=== PATIENT | male | born 1985 | race Caucasian/White ===

== ENCOUNTER 2017-08-01 23:28 | Emergency (ER) | payer OTHER, SELFPAY ==
[2017-08-02] MEDS ORDERED: predniSONE 20 MG TAB ONE (00:22)
[2017-08-02] MEDS ORDERED: KETOROLAC 30 MG/ML INJ ONE (00:22)
--- NOTE | 2017-08-02 01:11 | EDPHYS ---
Physician Documentation [facility] Name: Champ Kingsley Age: 31 yrs Sex: Male : 1985 Arrival Date: 08/01/2017 Time: 23:48 Bed 14 Private MD: ED Physician Marty Watkins HPI: 08/02 00:59 This 31 yrs old Male presents to ER via Ambulatory with complaints of Back gs Pain. 00:59 The patient presents with pain that is acute. The symptoms are located in the low back. gs Onset: The symptoms/episode began/occurred 2 day(s) ago. The pain does not radiate. Associated signs and symptoms: Pertinent negatives: incontinence, urinary retention. The problem was sustained when bending over, when lifting at work. Modifying factors: The patient symptoms are alleviated by rest, the patient symptoms are aggravated by movement. The patient has experienced similar episodes in the past, a few times. Historical: - Allergies: 08/01 23:51 No Known Allergies; fc - Home Meds: 23:51 None [Active]; fc - PMHx: 23:51 None; fc - PSHx: 23:51 None; fc - Immunization history:: Last tetanus immunization: up to date. - Social history:: Smoking status: Patient uses tobacco products, smokes one pack cigarettes per day. Patient uses alcohol, only on a social basis. Patient/guardian denies using street drugs. ROS: 08/02 00:59 All other systems are negative. gs Exam: 00:59 Head/Face: Normocephalic, atraumatic. Eyes: Pupils equal round and reactive to light, gs extra-ocular motions intact. Lids and lashes normal. Conjunctiva and sclera are non-icteric and not injected. Cornea within normal limits. Periorbital areas with no swelling, redness, or edema. ENT: Nares patent. No nasal discharge, no septal abnormalities noted. Tympanic membranes are normal and external auditory canals are clear. Oropharynx with no redness, swelling, or masses, exudates, or evidence of obstruction, uvula midline. Mucous membranes moist. Neck: Trachea midline, no thyromegaly or masses palpated, and no cervical lymphadenopathy. Supple, full range of motion without nuchal rigidity, or vertebral point tenderness. No Meningismus. Chest/axilla: Normal chest wall appearance and motion. Nontender with no deformity. No lesions are appreciated. Cardiovascular: Regular rate and rhythm with a normal S1 and S2. No gallops, murmurs, or rubs. Normal PMI, no JVD. No pulse deficits. Respiratory: Lungs have equal breath sounds bilaterally, clear to auscultation and percussion. No rales, rhonchi or wheezes noted. No increased work of breathing, no retractions or nasal flaring. Abdomen/GI: Soft, non-tender, with normal bowel sounds. No distension or tympany. No guarding or rebound. No evidence of tenderness throughout. Skin: Warm, dry with normal turgor. Normal color with no rashes, no lesions, and no evidence of cellulitis. MS/ Extremity: Pulses equal, no cyanosis. Neurovascular intact. Full, normal range of motion. Neuro: Awake and alert, GCS 15, oriented to person, place, time, and situation. Cranial nerves II-XII grossly intact. Motor strength 5/5 in all extremities. Sensory grossly intact. Cerebellar exam normal. Normal gait. 00:59 Constitutional: The patient appears alert, awake. 00:59 Back: pain, that is moderate, of the left low back and right low back, normal spinal alignment noted. Vital Signs: 08/01 23:51 BP 133 / 88; Pulse 78; Resp 18; Temp 98.2(O); Pulse Ox 96% on R/A; Weight 79.83 kg (R); fc Height 5 ft. 6 in. (167.64 cm) (R); Pain 9/10; 08/02 00:09 BP 137 / 96; Pulse 83; Resp 18; Temp 97.9; Pulse Ox 96% on R/A; wh 00:56 BP 129 / 89; Pulse 72; Resp 17; Pulse Ox 96% on R/A; wh 08/01 23:51 Body Mass Index 28.41 (79.83 kg, 167.64 cm) MDM: 00:01 Patient medically screened. 00:59 Differential diagnosis: arthritis, Ligament Injury ruptured disc. Data reviewed: vital gs signs, nurses notes. Response to treatment: the patient's symptoms have markedly improved after treatment, and as a result, I will discharge patient. Administered Medications: 00:27 Drug: predniSONE 20 mg Route: PO; 01:17 Follow up: Response: No adverse reaction 00:27 Drug: TORadol 30 mg Route: IM; Site: right deltoid; 01:17 Follow up: Response: No adverse reaction Disposition: 08/02/17 01:10 Discharged to Home. Impression: Low back pain. - Condition is Stable. - Discharge Instructions: Back Pain, Adult. - Prescriptions for Naprosyn 500 mg Oral Tablet - take 1 tablet by ORAL route 2 times per day take with food; 20 tablet. Pepcid 20 mg Oral Tablet - take 1 tablet by ORAL route every 12 hours for 10 days; 20 tablet. Prednisone 20 mg Oral Tablet - take 1 tablet by ORAL route once daily for 5 days; 5 tablet. - Medication Reconciliation Form, Thank You Letter, Antibiotic Education, Prescription Opioid Use form. - Follow up: Private Physician; When: 1 - 2 days; Reason: Re-evaluation by your physician. Signatures: Nia Fairbanks RN RN fc [place], Winsy Marty Watkins MD MD
--- NOTE | 2017-08-02 01:11 | ER ---
Nurse's Notes [facility] Name: Champ Kingsley Age: 31 yrs Sex: Male : 1985 Arrival Date: 08/01/2017 Time: 23:48 Bed 14 Private MD: Diagnosis: Low back pain Presentation: 08/01 23:48 Presenting complaint: Patient states: that he was at work and lifted a heavy piece of metal pulling something in his back. Was seen at [facility] on Monday and was given heating pad and brace. Was told to come back on . Transition of care: patient was not received from another setting of care. Onset of symptoms was July 31, 2017. Care prior to arrival: Medication(s) given: Motrin, 800 mg, last at 1999. 23:48 Method Of Arrival: Ambulatory fc 23:48 Acuity: WINNIE 4 fc Historical: - Allergies: 23:51 No Known Allergies; fc - Home Meds: 23:51 None [Active]; fc - PMHx: 23:51 None; fc - PSHx: 23:51 None; fc - Immunization history:: Last tetanus immunization: up to date. - Social history:: Smoking status: Patient uses tobacco products, smokes one pack cigarettes per day. Patient uses alcohol, only on a social basis. Patient/guardian denies using street drugs. Screenin/11 00:09 Abuse screen: Denies threats or abuse. Denies injuries from another. Nutritional wh screening: No deficits noted. Tuberculosis screening: No symptoms or risk factors identified. Fall Risk None identified. Assessment: 00:07 General: Appears in no apparent distress. uncomfortable, Behavior is calm, cooperative, wh appropriate for age. Pain: Complains of pain in lower back pain Pain does not radiate. Pain currently is 9 out of 10 on a pain scale. Quality of pain is described as aching, Pain began 1 day ago. 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 Cardiovascular: Denies chest pain, Capillary refill < 3 seconds. Respiratory: Airway is patent Respiratory effort is even, unlabored, Respiratory pattern is regular, symmetrical. GI: Abdomen is flat, non-distended. : No signs and/or symptoms were reported regarding the genitourinary system. EENT: No signs and/or symptoms were reported regarding the EENT system. Derm: Skin is intact, is healthy with good turgor, Skin is pink, warm \T\ dry. normal. Musculoskeletal: Range of motion: intact in all extremities. 00:56 Reassessment: Patient appears in no apparent distress at this time. Patient and/or family updated on plan of care and expected duration. Pain level reassessed. Patient is alert, oriented x 3, equal unlabored respirations, skin warm/dry/pink. Vital Signs: 08/01 23:51 BP 133 / 88; Pulse 78; Resp 18; Temp 98.2(O); Pulse Ox 96% on R/A; Weight 79.83 kg (R); Height 5 ft. 6 in. (167.64 cm) (R); Pain 01/01; 08/02 00:09 BP 137 / 96; Pulse 83; Resp 18; Temp 97.9; Pulse Ox 96% on R/A; wh 00:56 BP 129 / 89; Pulse 72; Resp 17; Pulse Ox 96% on R/A; wh 08/01 23:51 Body Mass Index 28.41 (79.83 kg, 167.64 cm) ED Course: 08/01 23:48 Patient arrived in ED. 23:51 Triage completed. 23:51 Arm band placed on Patient placed in an exam room, on a stretcher. 23:56 Luis Connors is Primary Nurse. 08/02 00:01 Marty Watkins MD is Attending Physician. 00:09 Patient has correct armband on for positive identification. Bed in low position. Call light in reach. Side rails up X 1. Pulse ox on. NIBP on. 01:16 No provider procedures requiring assistance completed. Patient did not have IV access during this emergency room visit. Administered Medications: 00:27 Drug: predniSONE 20 mg Route: PO; 01:17 Follow up: Response: No adverse reaction 00:27 Drug: TORadol 30 mg Route: IM; Site: right deltoid; 01:17 Follow up: Response: No adverse reaction Outcome: 01:10 Discharge ordered by . 01:16 Discharged to home ambulatory, with family. 01:16 Condition: improved 01:16 Discharge instructions given to patient, family, Instructed on discharge instructions, follow up and referral plans. medication usage, POC Back Pain Demonstrated understanding of instructions, follow-up care, medications, Prescriptions given X 3. 01:17 Patient left the ED. Signatures: Nia Fairbanks, RN Luis Saenz Marty Watkins MD MD
== END 2017-08-02 01:17 | disposition home or self-care (01) ==
LOC: ER 23:28
DX: M54.5 Low back pain (principal); F17.210 Nicotine dependence, cigarettes, uncomplicated
CPT/HCPCS: 96372; 99283; J7512

== ENCOUNTER 2023-01-24 15:23 | Emergency (ER) | payer SELFPAY ==
--- OUTSIDE RECORDS SUMMARY | 2023-01-24 15:36 | XMS REPORT | Continuity of Care Document ---
:1985 Author Organization [facility] Address [address] [place] [address] Care Team Providers Name Role Phone JAMES Attending Clinician Unavailable Leah Kaba Attending Clinician [phone] JAMES Admitting Clinician Unavailable Payers Payer Name Policy Type Policy Number Effective Date Expiration Date S ource Problems Condition Condition Condition Status Onset Resolution Last Treating Co mments Source Name Details Category Date Date Treatment Clinician Date Gastroesop Gastroesop Problem Active 2019-0 [facility] hageal hageal 9-10 [facility] reflux Reflux 00:00: ty disease Disease 00 [facility] Epigastric Epigastric Problem Active 2019-0 [facility] pain Pain 9-10 [facility] 00:00: ty 00 [facility] Allergies, Adverse Reactions, Alerts This patient has no known allergies or adverse reactions. Social History Smoking Status Start Date Stop Date Source Former Smoker [facility] Medications Ordered Filled Start Stop Current Ordering Indication Dosage Frequency Signature Comments Components Source Medication Medication Date Date Medication? Clinician (SIG) Name Name cyclobenzap cyclobenzap No 1 Q1D cyclobenza [place] rine 5 mg rine 5 mg jaylen 5 mg [facility] tablet Take tablet Take tablet ty 1 tablet 1 tablet Take 1 Hospi ta every day every day tablet l by oral by oral every day Clin ics route as route as by oral needed for needed for route as 7 days. 7 days. needed for 7 days. etodolac ER etodolac ER No 1 Q1D etodolac [place] 400 mg 400 mg ER 400 mg Commun i tablet,exte tablet,exte tablet,ext ty nded nded ended Hospita release 24 release 24 release 24 l hr Take 1 hr Take 1 hr Take 1 Clinics tablet tablet tablet every day every day every day by oral by oral by oral route at route at route at noon for 14 noon for 14 noon for days. days. 14 days. Medrol Medrol No 1dose Medrol [place] (Ceasar) 4 mg (Ceasar) 4 mg pk(s) (Ceasar) 4 mg [facility] tablets in tablets in tablets in ty a dose pack a dose pack a dose Hospita Take 1 dose Take 1 dose pack Take l pk by oral pk by oral 1 dose pk Clinics route as route as by oral directed directed route as for 6 days. for 6 days. directed for 6 days. pantoprazol pantoprazol No pantoprazo [place] e 40 mg e 40 mg le 40 mg Commu ni tablet,yeny tablet,yeny tablet,del ty yed release yed release ayed H ospita TAKE 1 TAKE 1 release l TABLET BY TABLET BY TAKE 1 Cli nics MOUTH ONCE MOUTH ONCE TABLET BY DAILY DAILY MOUTH ONCE DIRECTED DIRECTED DAILY FOR 30 DAYS FOR 30 DAYS DIRECTED FOR 30 DAYS cyclobenzap cyclobenzap No cyclobenza [place] rine 5 mg rine 5 mg jaylen 5 mg Communi tablet TAKE tablet TAKE tablet ty 1 TABLET BY 1 TABLET BY TAKE 1 Hospita MOUTH ONCE MOUTH ONCE TABLET BY l DAILY DAILY MOUTH ONCE C linics NEEDED FOR NEEDED FOR DAILY 7 DAYS 7 DAYS NEEDED FOR 7 DAYS etodolac ER etodolac ER No etodolac [place] 400 mg 400 mg ER 400 mg Commun i tablet,exte tablet,exte tablet,ext ty nded nded ended Hospita release 24 release 24 release 24 l hr TAKE 1 hr TAKE 1 hr TAKE 1 Clinics TABLET BY TABLET BY TABLET BY MOUTH ONCE MOUTH ONCE MOUTH ONCE DAILY AT DAILY AT DAILY AT NOON FOR 14 NOON FOR 14 NOON FOR DAYS DAYS 14 DAYS Medrol Medrol No 1dose Medrol [place] ([place]easar) 4 mg (Ceasar) 4 mg pk(s) (Ceasar) 4 mg [facility] tablets in tablets in tablets in ty a dose pack a dose pack a dose Hospita Take 1 dose Take 1 dose pack Take l pk by oral pk by oral 1 dose pk Clinics route as route as by oral directed directed route as for 6 days. for 6 days. directed for 6 days. pantoprazol pantoprazol No pantoprazo [place] e 40 mg e 40 mg le 40 mg Commu ni tablet,yeny tablet,yeny tablet,del ty yed release yed release ayed H ospita TAKE 1 TAKE 1 release l TABLET BY TABLET BY TAKE 1 Cli nics MOUTH ONCE MOUTH ONCE TABLET BY DAILY DAILY MOUTH ONCE DIRECTED DIRECTED DAILY DIRECTED azithromyci azithromyci No azithromyc [place] n 250 mg n 250 mg in 250 mg Co mmuni tablet TAKE tablet TAKE tablet ty 2 TABLETS 2 TABLETS TAKE 2 Hos juan c (500 MG) BY (500 MG) BY TABLETS l ORAL ROUTE ORAL ROUTE (500 MG) Clinics ONCE DAILY ONCE DAILY BY ORAL FOR 1 DAY FOR 1 DAY ROUTE ONCE THEN 1 THEN 1 DAILY FOR TABLET (250 TABLET (250 1 DAY THEN MG) BY ORAL MG) BY ORAL 1 TABLET ROUTE ONCE ROUTE ONCE (250 MG) DAILY FOR 4 DAILY FOR 4 BY ORAL DAYS DAYS ROUTE ONCE DAILY FOR 4 DAYS pantoprazol pantoprazol No pantoprazo [place] e 40 mg e 40 mg le 40 mg Commu ni tablet,yeny tablet,yeny tablet,del ty yed release yed release ayed H ospita TAKE 1 TAKE 1 release l TABLET BY TABLET BY TAKE 1 Cli nics MOUTH ONCE MOUTH ONCE TABLET BY DAILY DAILY MOUTH ONCE DIRECTED DIRECTED DAILY DIRECTED azithromyci azithromyci No azithromyc [place] n 250 mg n 250 mg in 250 mg Co mmuni tablet TAKE tablet TAKE tablet ty 2 TABLETS 2 TABLETS TAKE 2 Hos juan c (500 MG) BY (500 MG) BY TABLETS l ORAL ROUTE ORAL ROUTE (500 MG) Clinics ONCE DAILY ONCE DAILY BY ORAL FOR 1 DAY FOR 1 DAY ROUTE ONCE THEN 1 THEN 1 DAILY FOR TABLET (250 TABLET (250 1 DAY THEN MG) BY ORAL MG) BY ORAL 1 TABLET ROUTE ONCE ROUTE ONCE (250 MG) DAILY FOR 4 DAILY FOR 4 BY ORAL DAYS DAYS ROUTE ONCE DAILY FOR 4 DAYS pantoprazol pantoprazol No pantoprazo [place] e 40 mg e 40 mg le 40 mg Commu ni tablet,yeny tablet,yeny tablet,del ty yed release yed release ayed H ospita TAKE 1 TAKE 1 release l TABLET BY TABLET BY TAKE 1 Cli nics MOUTH ONCE MOUTH ONCE TABLET BY DAILY DAILY MOUTH ONCE DIRECTED DIRECTED DAILY DIRECTED Vital Signs Vital Name Observation Time Observation Value Comments Source BP Diastolic 2020-09-02 00:00:00 72 mm[Hg] [facility] s Height 2020-09-02 00:00:00 66 [in_i] [facility] s BMI (Body Mass 2020-09-02 00:00:00 31.6 kg/m2 [facility] BP Systolic 2020-09-02 00:00:00 150 mm[Hg] [facility] s Body Weight 2020-09-02 00:00:00 3136 [oz_av] [facility] s BP Diastolic 2020-07-06 00:00:00 70 mm[Hg] [facility] s Height 2020-07-06 00:00:00 66 [in_i] [facility] s BMI (Body Mass 2020-07-06 00:00:00 30.4 kg/m2 [facility]) [facility] s BP Systolic 2020-07-06 00:00:00 127 mm[Hg] [facility] s Body Weight 2020-07-06 00:00:00 3017.6 [oz_av] [facility] BP Diastolic 2020-06-30 00:00:00 76 mm[Hg] [facility] s Height 2020-06-30 00:00:00 66 [in_i] [facility] s BMI (Body Mass 2020-06-30 00:00:00 32 kg/m2 [facility] BP Systolic 2020-06-30 00:00:00 133 mm[Hg] [facility] s Body Weight 2020-06-30 00:00:00 3174.4 [oz_av] [facility] Procedures Procedure Date / Time Performed Performing Clinician Sourc e XR, hip, unilateral 2020-06-30 00:00:00 [facility]R, lumbosacral spine, 2020-06-30 00:00:00 [facility] 2 or 3 [facility] Plan of Care Planned Activity Planned Date Details Comments Source Diagnostic Test 2020-09-02 rapid SARS CoV 2 Ag, Swe[place] pa Community Pending 00:00:00 QL [place], respiratory Hospital Clinics specimen [code = rapid SARS CoV 2 Ag, QL [place], respiratory specimen] Instructions [facility] s Encounters Start End Encounter Admission Attending Care Care Encounter Source Date/Time Date/Time Type Type Clinicians Facility Department ID 2020-09-02 2020-09-02 Outpatient [facility] [id number] [place] 02:03:00 02:03:00 _L [id number] Commun i ty Hosp[facility] Clinics 2020-09-02 2020-09-02 Leah Sales [facility] [place] - [place] [address] [place] 00:00:00 00:00:00 [facility] NAHED Davidson: Hospital - ty [address] [facility], [facility] Clinics [address], [place] [address] , Ph. 2020-09-02 2020-09-02 Outpatient [facility] [id number] 00:00:00 00:00:00 , Leah [id number] Mónica [id number] 2020-09-02 2020-09-02 Outpatient [facility] [id number] 00:00:00 00:00:00 , Leah [id number] Mónica [id number] 2020-07-06 2020-07-06 Outpatient [facility] [address] [place] 12:13:00 12:13:00 _L 315 Commun i ty Hospita l Clinics 2020-07-06 2020-07-06 Outpatient [facility] [id number] 00:00:00 00:00:00 , Leah [id number] Mónica [id number] 2020-07-06 2020-07-06 Leah Sales [facility] [place] - [place] [address] [id number] [place] 00:00:00 00:00:00 [facility] OSCAR [facility]: Hospital - ty [address] [place] [address] [address], [place] [address] , Ph. 2020-06-30 2020-06-30 Outpatient [facility] [id number] [place] 05:46:00 05:46:00 _L 309 Commun i ty [facility] 2020-06-30 2020-06-30 Leah Sales [facility] [place] - [place] [id number] [place] 00:00:00 00:00:00 [facility] CHRISTOPHER [facility]rea-C: [facility] - [place] [id number], [place] [address] , Ph. 2020-06-30 2020-06-30 Outpatient [facility] [id number] 00:00:00 00:00:00 , Leah [id number] Mónica [id number] Results Test Description Test Time Test Comments Results Result Comments Source SARS-CoV-2 (COVID-19) Ag [Presence] in Respiratory spe cimen by 2020-09-02 11:27:00 Rapid immunoassay Test Item Value Reference Range Interpretation Comme nts SARS CoV 2 (test code = SARS CoV 2) negative [facility] Ag [Presence] in Respiratory specimen by Rapid [id number] 11:27:00 Test Item Value Reference Range Interpretation Comments SARS CoV 2 (test code = SARS CoV 2) negative [facility]
[2023-01-24] MEDS ORDERED: KETOROLAC 30 MG/ML INJ ONE (16:03)
--- NOTE | 2023-01-24 16:21 | RAD REPORT ---
EXAM DESCRIPTION: RAD - Lumbar Spine 3 Views - 01/24/2023 4:12 pm CLINICAL HISTORY: PAIN Radiculopathy COMPARISON: No comparisons FINDINGS: Vertebral body heights appear maintained. No compression fracture noted. Disc spaces are m aintained. No spondylolysis or spondylolisthesis. IMPRESSION: Negative study.
--- NOTE | 2023-01-24 16:25 | EDPHYS ---
Physician Documentation [facility] Name: Champ Kingsley Age: 37 yrs Sex: Male : 1985 Arrival Date: 01/24/2023 Time: 15:23 Bed 15 Private MD: ED Physician Markos Chou HPI: 01/24 15:43 This 37 yrs old Male presents to ER via Ambulatory with complaints of Low Back Pain, snw Leg Pain. 15:43 The patient presents with pain that is chronic, with no known mechanism of injury. The snw symptoms are located in the low back. Location: left posterior back. The problem was sustained chronic pain x 2 yrs to area, worse over last 2 weeks. Associated signs and symptoms: The patient has no apparent associated signs or symptoms. Severity of symptoms: At their worst the symptoms were moderate. The patient has experienced a previous episode. Historical: - Allergies: 15:40 No Known Allergies; aa5 - Home Meds: 15:40 protonix 20mg [Active]; aa5 - PMHx: 15:40 acid reflux; aa5 - PSHx: 15:40 None; aa5 - Immunization history:: Adult Immunizations unknown. - Social history:: Smoking status: Patient reports the use of cigarette tobacco products, smokes one-half pack cigarettes per day. ROS: 15:43 Constitutional: Negative for fever, chills, and weight loss, Eyes: Negative for injury, snw pain, redness, and discharge, ENT: Negative for injury, pain, and discharge, Neck: Negative for injury, pain, and swelling, Cardiovascular: Negative for chest pain, palpitations, and edema, Respiratory: Negative for shortness of breath, cough, wheezing, and pleuritic chest pain, Abdomen/GI: Negative for abdominal pain, nausea, vomiting, diarrhea, and constipation, : Negative for injury, bleeding, discharge, and swelling, MS/Extremity: Negative for injury and deformity, Skin: Negative for injury, rash, and discoloration, Neuro: Negative for headache, weakness, numbness, tingling, and seizure, Psych: Negative for depression, anxiety, suicide ideation, homicidal ideation, and hallucinations, 15:43 Back: Positive for pain at rest, pain with movement, radiated pain, of the left posterior leg, Exam: 15:42 Constitutional: This is a well developed, well nourished patient who is awake, alert, snw and in no acute distress. Head/Face: Normocephalic, atraumatic. Eyes: Pupils equal round and reactive to light, extra-ocular motions intact. Lids and lashes normal. Conjunctiva and sclera are non-icteric and not injected. Cornea within normal limits. Periorbital areas with no swelling, redness, or edema. ENT: Nares patent. No nasal discharge, no septal abnormalities noted. Tympanic membranes are normal and external auditory canals are clear. Oropharynx with no redness, swelling, or masses, exudates, or evidence of obstruction, uvula midline. Mucous membranes moist. Neck: Trachea midline, no thyromegaly or masses palpated, and no cervical lymphadenopathy. Supple, full range of motion without nuchal rigidity, or vertebral point tenderness. No Meningismus. Chest/axilla: Normal chest wall appearance and motion. Nontender with no deformity. No lesions are appreciated. Cardiovascular: Regular rate and rhythm with a normal S1 and S2. No gallops, murmurs, or rubs. Normal PMI, no JVD. No pulse deficits. Respiratory: Lungs have equal breath sounds bilaterally, clear to auscultation and percussion. No rales, rhonchi or wheezes noted. No increased work of breathing, no retractions or nasal flaring. Abdomen/GI: Soft, non-tender, with normal bowel sounds. No distension or tympany. No guarding or rebound. No evidence of tenderness throughout. Skin: Warm, dry with normal turgor. Normal color with no rashes, no lesions, and no evidence of cellulitis. MS/ Extremity: Pulses equal, no cyanosis. Neurovascular intact. Full, normal range of motion. Neuro: Awake and alert, GCS 15, oriented to person, place, time, and situation. Cranial nerves II-XII grossly intact. Motor strength 5/5 in all extremities. Sensory grossly intact. Cerebellar exam normal. Normal gait. Psych: Awake, alert, with orientation to person, place and time. Behavior, mood, and affect are within normal limits. 15:42 Back: pain, that is mild, that is moderate, of the low back area, normal spinal alignment noted, CVA tenderness, is absent, muscle spasm, is not present, , Vital Signs: 15:41 BP 149 / 96; Pulse 85; Resp 18 S; Temp 98(TE); Pulse Ox 98% on R/A; Weight 93.44 kg aa5 (R); Height 5 ft. 6 in. ; 15:41 Body Mass Index 33.25 (93.44 kg, 167.64 cm) aa5 MDM: 15:37 Patient medically screened. snw 16:30 Differential diagnosis: arthritis, strain, sciatica, Herniated disc. Data reviewed: snw vital signs, nurses notes. I considered the following discharge prescriptions or medication management in the emergency department Medications were administered in the Emergency Department. See MAR. Counseling: I had a detailed discussion with the patient and/or guardian regarding the historical points, exam findings, and any diagnostic results supporting the discharge/admit diagnosis, the presence of at least one elevated blood pressure reading (>120/80) during this emergency department visit, radiology results, the need for outpatient follow up, for definitive care, to return to the emergency department if symptoms worsen or persist or if there are any questions or concerns that arise at home. Special discussion: I have referred the patient to see his PCP for further evaluation of high blood pressure. Based on the history and exam findings, there is no indication for further emergent testing or inpatient evaluation. I discussed with the patient/guardian the need to see the primary care provider for further evaluation of the symptoms. 01/24 15:45 Order name: Lumbar Spine (3 Views) XRAY; Complete Time: 16:23 snw Administered Medications: 15:54 Drug: Ketorolac IM 30 mg IM once Route: IM; Site: right deltoid; eh3 Disposition: 17:58 Co-signature as Attending Physician, Markos Chou MD I reviewed the patient's care rt provided by the Advanced Practice Provider and agree with the diagnosis and treatment plan. Disposition Summary: 01/24/23 16:25 Discharge Ordered Notes: Location: Home snw Condition: Stable snw Diagnosis - Low back pain snw - Radiculopathy, lumbar region snw Followup: snw - With: Emergency Department - When: As needed - Reason: Worsening of condition Followup: snw - With: Private Physician - When: 2 - 3 days - Reason: Recheck today's complaints, Continuance of care, Re-evaluation by your physician Discharge Instructions: - Discharge Summary Sheet snw - Lumbosacral Radiculopathy snw - Musculoskeletal Pain snw - Rehydration, Adult snw - Heat Therapy snw - Back Injury Prevention snw Forms: - Medication Reconciliation Form snw - Thank You Letter snw - Antibiotic Education snw - Prescription Opioid Use snw - Patient Portal Instructions snw - Leadership Thank You Letter snw Prescriptions: - Mobic 7.5 mg Oral Tablet - take 1 tablet ORAL route once daily take with food; 20 tablet; Refills: 0, snw Product Selection Permitted - orphenadrine citrate 100 mg Oral Tablet Sustained Release - take 1 tablet ORAL route 2 times per day As needed; 20 tablet; Refills: 0, snw Product Selection Permitted Signatures: Dispatcher [employer] EDMS Guerline aGn, MANAGER INVENTORY-C MANAGER INVENTORY-Csnw Aislinn Soria, RN RN aa5 Janeth Blevins RN RN eh3 Markos Chou MD MD rt
--- NOTE | 2023-01-24 16:25 | ER ---
Nurse's Notes [facility] Name: Champ Kingsley Age: 37 yrs Sex: Male : 1985 Arrival Date: 01/24/2023 Time: 15:23 Bed 15 Private MD: Diagnosis: Low back pain;Radiculopathy, lumbar region Presentation: 01/24 15:41 Chief complaint: Patient states: left low back pain radiating down left leg x 2-3 weeks aa5 ago, denies known injury. Coronavirus screen: At this time, the client does not indicate any symptoms associated with coronavirus-19. Ebola Screen: Patient denies travel to an Ebola-affected area in the 21 days before illness onset. Initial Sepsis Screen: Does the patient meet any 2 criteria? No. Patient's initial sepsis screen is negative. Does the patient have a suspected source of infection? No. Patient's initial sepsis screen is negative. Risk Assessment: Do you want to hurt yourself or someone else? Patient reports no desire to harm self or others. Onset of symptoms was December 2022. 15:41 Method Of Arrival: Ambulatory aa5 15:41 Acuity: WINNIE 4 aa5 Historical: - Allergies: 15:40 No Known Allergies; aa5 - Home Meds: 15:40 protonix 20mg [Active]; aa5 - PMHx: 15:40 acid reflux; aa5 - PSHx: 15:40 None; aa5 - Immunization history:: Adult Immunizations unknown. - Social history:: Smoking status: Patient reports the use of cigarette tobacco products, smokes one-half pack cigarettes per day. Screenin:47 [facility] ED Fall Risk Assessment (Adult) Score/Fall Risk Level 0 - 2 = Low Risk. Abuse eh3 screen: Denies threats or abuse. Denies injuries from another. Nutritional screening: No deficits noted. Tuberculosis screening: No symptoms or risk factors identified. Assessment: 15:47 General: Appears in no apparent distress. uncomfortable, Behavior is calm, cooperative, eh3 appropriate for age. Pain: Complains of pain in low back area Pain radiates to left leg. Neuro: Level of Consciousness is awake, alert, obeys commands, Oriented to person, place, time, situation. Cardiovascular: Capillary refill < 3 seconds Patient's skin is warm and dry. Respiratory: Airway is patent Respiratory effort is even, unlabored, Respiratory pattern is regular, symmetrical. GI: Abdomen is round non-distended. Derm: Skin is pink, warm \T\ dry. Musculoskeletal: Circulation, motion, and sensation intact. Vital Signs: 15:41 BP 149 / 96; Pulse 85; Resp 18 S; Temp 98(TE); Pulse Ox 98% on R/A; Weight 93.44 kg aa5 (R); Height 5 ft. 6 in. ; 15:41 Body Mass Index 33.25 (93.44 kg, 167.64 cm) aa5 ED Course: 15:26 Patient arrived in ED. mg5 15:35 Arm band placed on Patient placed in an exam room, on a stretcher. aa5 15:37 Guerline Gan [facility]C [facility] snw 15:37 Markos Chou MD is Attending Physician. snw 15:42 Triage completed. aa5 15:47 Janeth Blevins, RN is Primary Nurse. eh3 15:47 Patient has correct armband on for positive identification. Bed in low position. Call eh3 light in reach. Side rails up X2. Provided Education on: Use of call saini. Pulse ox on. NIBP on. 16:13 Lumbar Spine (3 Views) XRAY In Process Unspecified. EDMS Administered Medications: 15:54 Drug: Ketorolac IM 30 mg IM once Route: IM; Site: right deltoid; 3 Outcome: 16:25 Discharge ordered by . snw 16:47 Patient left the ED. 3 Signatures: Dispatcher [employer] EDMS Guerline Gan FNP-C CANDY DIPPER-CsnAislinn Laws, RN RN [facility] Janeth Blevins, RN RN 3 Amelie Quiroga 5
[2023-01-24 17:29] VITALS: BP 149/96; TEMP 98; O2SAT 98
== END 2023-01-24 16:47 | disposition home or self-care (01) ==
LOC: ER 15:23
DX: M54.16 Radiculopathy, lumbar region (principal); F17.210 Nicotine dependence, cigarettes, uncomplicated
CPT/HCPCS: 72100; 96372; 99284